=== PATIENT | male | born 1935 | race Caucasian/White ===

== ENCOUNTER 2023-02-22 05:58 | Day surgery (SDC) | payer OTHER ==
[2023-02-16 16:12] VITALS: BMI 22.9
[2023-02-22] MEDS ORDERED: VANCOMYCIN 1,000 MG VIAL (RESTRICTED TO ID ONLY) ONE (07:06)
[2023-02-22] MEDS ORDERED: THROMBIN (BOVINE) 5,000 UNIT VIAL TP ONE (07:06)
[2023-02-22] MEDS ORDERED: ceFAZolin SODIUM 1 GM VIAL ONE ×3 (07:06→08:17)
[2023-02-22] MEDS ORDERED: ONDANSETRON 4 MG/2 ML VIAL IVPUSH PRN (07:15)
[2023-02-22] MEDS ORDERED: oxyCODONE HCL 5 MG TABLET PO PRN ×2 (07:15→12:28)
[2023-02-22] MEDS ORDERED: BUPIVACAINE LIPOSOME/PF (EXPAREL) 266 MG/20 ML VIAL ONE (07:22)
[2023-02-22] MEDS ORDERED: ACETAMINOPHEN INJECTION 100 ML IVPB ONE (07:23)
[2023-02-22] MEDS ORDERED: BUPIVACAINE HCL/PF 0.5% (5MG/ML) 10 ML VIAL ONE (07:23)
[2023-02-22] MEDS ORDERED: MIDAZOLAM HCL 2 MG/2 ML SINGLE DOSE VIAL ONE (07:39)
[2023-02-22] MEDS ORDERED: TRANEXAMIC ACID 1000 MG/10 ML VIAL IVPUSH ONE (07:48)
[2023-02-22] MEDS ORDERED: CEFAZOLIN 2 GM in DEXTROSE 5%-WATER - 50 ML IVPB ONE (07:48)
[2023-02-22] MEDS ORDERED: KETOROLAC TROMETHAMINE 30 MG/1 ML VIAL ONE (08:34)
[2023-02-22] MEDS ORDERED: DEXAMETHASONE SOD PHOSPHATE 4 MG/1 ML VIAL ONE (08:34)
[2023-02-22] MEDS ORDERED: PATIENT'S OWN MEDICATION (NON-FORMULARY) (Vibegron [Gemtesa] 75 MG Tablet) PO SCH (10:00)
[2023-02-22] MEDS: metoPROLOL SUCCINATE 25 MG TAB.SR.24H (FP) PO SCH (13:51)
[2023-02-22] MEDS: MULTIVITAMINS (DAILY MVI) TABLET (FP) PO SCH (13:51)
[2023-02-22] MEDS: PANTOPRAZOLE 40 MG TABLET PO SCH (13:51)
[2023-02-22] MEDS: SENNOSIDES/DOCUSATE COMBO (SENNA PLUS) TABLET (UD) PO SCH ×2 (13:51→21:08)
[2023-02-22] MEDS: LACTATED RINGERS SOLUTION 1,000 ML IV SCH (15:35)
[2023-02-22] MEDS: CEFAZOLIN SODIUM 2 GM in DEXTROSE 5%-WATER 100 ML IVPB SCH ×2 (15:46→23:46)
[2023-02-22] MEDS: prednisoLONE ACETATE 1% OPHTH SUSP 5 ML BOTTLE OS SCH ×2 (15:48→21:07)
[2023-02-22] MEDS: KETOROLAC TROMETHAMINE 0.5% EYE DROP 1 DROP DROPS OS SCH ×2 (15:48→21:08)
[2023-02-22] MEDS: oxyCODONE HCL 5 MG TABLET PO PRN ×2 (17:49→21:06)
[2023-02-22] MEDS: ACETAMINOPHEN 325 MG TABLET (FP) PO PRN (21:05)
[2023-02-23] MEDS ORDERED: KETOROLAC TROMETHAMINE 15 MG/ML VIAL IVPUSH ONE (00:25)
[2023-02-23] MEDS: oxyCODONE HCL 5 MG TABLET PO PRN ×3 (00:46→11:18)
[2023-02-23] MEDS: KETOROLAC TROMETHAMINE 0.5% EYE DROP 1 DROP DROPS OS SCH ×2 (06:25→15:45)
[2023-02-23] MEDS: prednisoLONE ACETATE 1% OPHTH SUSP 5 ML BOTTLE OS SCH ×2 (06:25→15:46)
[2023-02-23] MEDS: ACETAMINOPHEN 325 MG TABLET (FP) PO PRN (06:26)
[2023-02-23] MEDS ORDERED: ASPIRIN 325 MG TABLET PO SCH (08:00)
[2023-02-23 08:11] VITALS: RESP 18
[2023-02-23 08:36] LABS: HEMATOCRIT 34.3 % (35.4-49); HEMOGLOBIN 11.2 G/dL (11.7-16.9); MCH 28.4 pg (25.7-33.7); MCHC 32.5 g/dl (32.0-35.9); MEAN CELL VOLUME 87.4 fl (80-96); MEAN PLT VOLUME 8.2 fl (7.5-11.1); PLATELET COUNT 160.3 10^3/uL (134-434); RBC 3.92 10^6/uL (4.00-5.60); RDW 14.7 % (11.9-15.9); WHITE BLOOD COUNT 9.7 10^3/uL (4.0-10.8)
[2023-02-23] MEDS: SENNOSIDES/DOCUSATE COMBO (SENNA PLUS) TABLET (UD) PO SCH (09:23)
[2023-02-23] MEDS: metoPROLOL SUCCINATE 25 MG TAB.SR.24H (FP) PO SCH (09:24)
[2023-02-23] MEDS: PANTOPRAZOLE 40 MG TABLET PO SCH (09:24)
[2023-02-23] MEDS: MULTIVITAMINS (DAILY MVI) TABLET (FP) PO SCH (09:24)
[2023-02-23 12:19] VITALS: BP 115/58; PULSE 74; TEMP 98
[2023-02-23] MEDS ORDERED: KETOROLAC TROMETHAMINE 15 MG/ML VIAL IVPB ONE (12:45)
[2023-02-23] MEDS: LACTATED RINGERS SOLUTION 1,000 ML IV SCH (13:48)
== END 2023-02-23 16:16 ==
LOC: FASUSAT 05:58 → FM/S 12:01 → FASUSAT 02-23 16:16
PROVIDERS: ATTEND Orthopaedic Surgery
PROC: 8E0Y0CZ Robotic Assisted Procedure of Lower Extremity, Open Approach (ICD-10-PCS; 2023-02-22)
PROC: 0SRC0J9 Replacement of Right Knee Joint with Synthetic Substitute, Cemented, Open Approach (ICD-10-PCS; principal; 2023-02-22 08:25)
DX: M17.11 Unilateral primary osteoarthritis, right knee (principal)
CPT/HCPCS: 20985; 27447; C1776; S2900; 36415; 73560-TC-RT-FY; 85027; 94760; 97010-GP; 97116-GP; 97162-GP; C1713; C1889